=== PATIENT | female | born 1970 | race Caucasian/White ===

== ENCOUNTER 2018-01-31 17:27 | Emergency (ER) | payer OTHER, SELFPAY ==
[2018-01-31 17:32] VITALS: BP 131/79; PULSE 85; RESP 16; O2SAT 100; BMI 32.5
--- NOTE | 2018-01-31 17:49 | DI.RAD.S_ITS ---
PROCEDURE: XR CHEST 1V INDICATIONS: cp TECHNIQUE: One view of the chest was acquired. COMPARISON: [facility], , CHEST 2 VIEW, 01/31/2015, 14:23. FINDINGS: Surgical changes and devices: None. Lungs and pleura: No pleural effusions or pneumothorax. Lungs are clear. Mediastinum: Mediastinal contours appear normal. Heart size is normal. Bones and chest wall: No suspicious bony lesions. Overlying soft tissues appear unremarkable. IMPRESSION: No acute process. Dictated by: Keith Bejarano M.D. on 01/31/2018 at 18:12 Approved by: Keith Bejarano M.D. on 01/31/2018 at 18:13
[2018-01-31 18:19] LABS: Alanine Aminotransferase 23 IU/L (9-52); Albumin 4.6 g/dL (3.5-5.0); Albumin Globulin Ratio 1.6 (1.0-2.8); Alkaline Phosphatase 37 U/L (38-126); Aspartate Aminotransferase 19 IU/L (14-36); Bilirubin Total 0.5 mg/dL (0.2-1.3); Blood Urea Nitrogen 12 mg/dL (7-17); Calcium 9.3 mg/dL (8.4-10.2); Carbon Dioxide 23 mmol/L (22-32); Chloride 104 mmol/L (98-107); Creatine Kinase 40 U/L (30-135); Estimated Glomerular Filt Rate > 60.0 mL/min (>60); Globulin 2.8 g/dL (1.7-4.1); Glucose 99 mg/dL (70-100); HEMOLYSIS 17 (0-50); Lipase 49 U/L (23-300); Potassium 3.7 mmol/L (3.4-5.1); Sodium 141 mmol/L (137-145); Total Protein 7.4 g/dL (6.3-8.2)
[2018-01-31 18:23] LABS: Add Manual Diff / Slide Review NO; Eosinophils Percent Auto 1.7 % (2-4); Hematocrit 40.7 % (36-46); Hemoglobin 14.5 g/dL (12.0-16.0); Lymphocytes Percent Auto 24.5 % (25-40); Mean Corpuscular HGB Conc 35.7 % (30-36); Mean Corpuscular Hemoglobin 30.3 PG (26-34); Monocytes Percent Auto 8.1 % (3-14); Neutrophils Absolute Auto 5900 /uL (3000-5900); Neutrophils Percent Auto 64.7 % (50-75); Platelet Count 254 X10^3/uL (150-400); Red Blood Cell Count 4.79 X10^6/uL (4.0-5.2); Red Cell Distribution Width 12.4 % (11.6-14.8); White Blood Cell Count 9.2 X10^3/uL (4.5-11.0)
[2018-01-31 18:33] LABS: Troponin I < 0.012 ng/mL (0.01-0.034)
[2018-01-31 19:00] VITALS: BP 118/68; PULSE 80; RESP 15; O2SAT 100
[2018-01-31 19:30] VITALS: BP 120/80; PULSE 81; RESP 13; O2SAT 100
[2018-01-31 20:00] VITALS: BP 111/45; PULSE 76; RESP 12; O2SAT 100
--- NOTE | 2018-01-31 20:02 | ED_ITS ---
HPI - Chest Pain General Chief Complaint: Chest Pain Stated Complaint: chest pain, shortness of breath, pain in left shou Time Seen by Provider: 01/31/18 20:00 Source: patient Mode of arrival: ambulatory Limitations: no limitations History of Present Illness HPI narrative: Patient is a 47-year-old female who presents with chest discomfort ongoing for about 2 weeks. She had some belching before Thanksgiving and some burning. During this time she did have some shortness of breath. She has had the symptoms off and on for a few times since. She saw her PCP yesterday who thought it was acid reflux started her on omeprazole. Today she had a similar feeling and radiated up to her left shoulder which was abnormal. Related Data Allergies Allergy/AdvReac Type Severity Reaction Status Date / Time codeine [CODEINE] Allergy Mild RASH Verified 01/31/18 17:32 Review of Systems Review of Systems GENERAL: Denies chills, fatigue, malaise, fever, sweats, travel HEENT: Denies sinus pain, ear pain, sore throat, difficulty swallowing, neck pain RESPIRATORY: Denies dyspnea, cough, wheezing, hemoptysis, sputum. CARDIOVASCULAR: See HPI GASTROINTESTINAL: Denies nausea, vomiting, abdominal pain, diarrhea, constipation, melena. : Denies dysuria, frequency, incontinence, hematuria, urinary retention, flank pain. MUSCULOSKELETAL: Denies weakness, joint pain, or bony pain SKIN: No rash, no erythema, no pruritus NEUROLOGIC: Denies weakness, dizziness, headache, numbness, change in speech, confusion PSYCHIATRIC: No concerning psychosocial issues. 12 point review of systems is negative except for those stated above and HPI [facility] Medical History Healthy adult (Acute) Social History Smoking Status: Never smoker Comment: No known immediate family history of coronary artery disease Grandfather had MT at age 45 Exam Initial Vital Signs Initial Vital Signs: Vital Signs Pulse Rate 85 01/31/18 17:32 Respiratory Rate 16 01/31/18 17:32 Blood Pressure 131/79 01/31/18 17:32 Pulse Oximetry 100 01/31/18 17:32 GENERAL: Well-appearing, well-nourished and in no acute distress. HEENT: Head atraumatic,EOMI, pupils reactive, neck is supple no JVD CARDIOVASCULAR: Regular rate and rhythm without murmurs, rubs or gallops. RESPIRATORY: Breath sounds equal bilaterally, no wheezes rales or rhonchi. ABDOMEN: Soft, nontender. Normoactive bowel sounds all 4 quadrants. No guarding or rebound. : No CVA tenderness EXTREMITIES: Normal range of motion, no clubbing or edema. Neurovascularly intact NEUROLOGICAL: Alert and oriented x4.Normal gait and speech. Cranial nerves II through XII grossly intact. SKIN: Warm, dry, no laceration, no petechiae, no rashes or lesions. Scores HEART Score Heart Score history: Slightly Suspicious Heart Score EKG: Normal Heart Score Age: 45-64 years old Heart Score risk factors: No known risk factors Heart Score troponin: < or = to normal limit Heart Score Total: 1 PERC Score Age greater than or equal to 50 years: No Heart rate greater than or equal to 100 bpm: No Room Air O2 Sat less than 95%: No Unilateral leg swelling: No Recent trauma or surgery: No Hemoptysis: No Prior PE or DVT: No Hormone Use: No Total PERC Score: 0 Wells' Criteria for PE Clinical signs and symptoms of PE: No PE is #1 Dx or equally likely: No Heart rate > 100: No Immobilization at least 3 days or surg in previous 4 weeks: No History of PE or DVT: No Hemoptysis: No Malignancy w/Treatment within 6 months or palliative: No Wells' PE Score total: 0 Course Orders Ordered: ED Orders 01/31/18 17:49 XR chest 1V Stat EKG-12 Lead Stat 01/31/18 17:50 Complete Blood Count AUTO DIFF Stat Comprehensive Metabolic Panel Stat Lipase Stat Troponin & CK Cardiac Panel Stat Discontinued Medications Aspirin (Aspirin Chew) 324 mg PO NOW ONE Stop: 01/31/18 17:50 Sodium Chloride (Normal Saline 0.9%) 1,000 mls @ 150 mls/hr IV CONT AXEL Vital Signs - 8 hr 01/31/18 19:00 01/31/18 19:30 01/31/18 20:00 Pulse Rate 80 81 76 Respiratory Rate 15 13 12 Blood Pressure [Left Arm] 118/68 120/80 111/45 L Pulse Oximetry 100 100 100 MDM - Chest Pain Lab Data Attestation: I reviewed the patient's lab results. Result diagrams: 01/31/18 17:50 01/31/18 17:50 Lab Results 01/31/18 01/31/18 Range/Units 17:50 17:50 WBC 9.2 (4.5-11.0) X10^3/uL RBC 4.79 (4.0-5.2) X10^6/uL Hgb 14.5 (12.0-16.0) g/dL Hct 40.7 (36-46) % MCV 85.0 (80-100) fL MCH 30.3 (26-34) PG MCHC 35.7 (30-36) % RDW 12.4 (11.6-14.8) % Plt Count 254 (150-400) X10^3/uL Neut % (Auto) 64.7 (50-75) % Lymph % (Auto) 24.5 L (25-40) % Garden % (Auto) 8.1 (3-14) % Eos % (Auto) 1.7 L (2-4) % Baso % (Auto) 1.0 (0-2) % Neut # (Auto) 5900 (9416-8105) /uL Sodium 141 (137-145) mmol/L Potassium 3.7 (3.4-5.1) mmol/L Chloride 104 (98-107) mmol/L Carbon Dioxide 23 (22-32) mmol/L BUN 12 (7-17) mg/dL Creatinine 0.60 (0.52-1.04) mg/dL Estimated GFR > 60.0 (>60) mL/min BUN/Creatinine Ratio 20.0 (6-22) Glucose 99 (70-100) mg/dL Calcium 9.3 (8.4-10.2) mg/dL Total Bilirubin 0.5 (0.2-1.3) mg/dL AST 19 (14-36) IU/L ALT 23 (9-52) IU/L Alkaline Phosphatase 37 L (38-126) U/L Total Creatine Kinase 40 (30-135) U/L CK-MB (CK-2) TNP CK-MB (CK-2) Rel Index TNP Troponin I < 0.012 (0.01-0.034) ng/mL Total Protein 7.4 (6.3-8.2) g/dL Albumin 4.6 (3.5-5.0) g/dL Globulin 2.8 (1.7-4.1) g/dL Albumin/Globulin Ratio 1.6 (1.0-2.8) Lipase 49 (23-300) U/L Imaging Data Chest x-ray: Radiologist's impression: PROCEDURE: XR CHEST 1V INDICATIONS: cp TECHNIQUE: One view of the chest was acquired. COMPARISON: [facility], CHEST 2 VIEW, 01/31/2015, 14:23. FINDINGS: Surgical changes and devices: None. Lungs and pleura: No pleural effusions or pneumothorax. Lungs are clear. Mediastinum: Mediastinal contours appear normal. Heart size is normal. Bones and chest wall: No suspicious bony lesions. Overlying soft tissues appear unremarkable. IMPRESSION: No acute process. Dictated by: Keith Bejarano M.D. on 01/31/2018 at 18:12 ECG Data Attestation: I personally reviewed and interpreted this ECG as follows: Prior ECG tracings: not available for review Interpretation: Normal sinus rhythm rate [address] changes HI interval 137 no T-wave inversion MDM Narrative Medical decision making narrative: Patient sounds as though she is having acid reflux. She has had some belching. Troponin EKG negative. Low risk for PE Recommend outpatient follow-up Discharge Plan Departure Patient Disposition: Home Clinical Impression: Atypical chest pain, GERD (gastroesophageal reflux disease) Discharge Date/Time: 01/31/18 20:33 Interventions: ED Discharge Assessment Last Done: 01/31/18 20:33 Instructions: DI for Gastroesophageal Reflux Disease (GERD), DI for Atypical Chest Pain Activity Restrictions/Additional Instructions: *You have been diagnosed with atypical chest pain, probable GERD *What to do: May require further cardiac testing with your PCP however at this time EKG blood work and x-ray are reassuring *Continue to take medications as directed Continue omeprazole 30 min before your biggest meal on an empty stomach *Follow up with your primary care provider in 2-3 days *Return to ER if you should have new worsening or changing chest or any new, worsening or concerning symptoms Referrals: Jl Mcelroy MD [Primary Care Provider] -
== END 2018-01-31 20:33 | disposition home or self-care (01) ==
PROVIDERS: Emergency Medicine; Emergency Provider Emergency Medicine; PCP Family Medicine
DX: K21.9 Gastro-esophageal reflux disease without esophagitis (principal); R07.89 Other chest pain
CPT/HCPCS: 36591; 71045; 80053; 82550; 83690; 84484; 85025; 93005; 93010; 99283; 99285

== ENCOUNTER → 2018-02-14 09:13 | Outpatient (CLI) | payer OTHER, SELFPAY ==
--- NOTE | 2018-02-14 | DI.US.S_ITS ---
PROCEDURE: US ABDOMEN COMPLETE INDICATIONS: ABDOMINAL PAIN TECHNIQUE: Real-time scanning was performed of the abdominal and retroperitoneal organs, with image documentation. COMPARISON: [facility], US, ABDOMEN COMPLETE, 01/06/2016, 8:55. FINDINGS: Liver: Liver is normal in size and homogeneous in echotexture. Gallbladder: Surgically absent. Biliary ducts: Intrahepatic bile ducts are non-dilated. Extrahepatic bile duct caliber measures 6.7 mm. Normal is 6-7 mm or less in diameter, or 10 mm or less post-cholecystectomy. Pancreas: Visualized portions of the pancreas are sonographically normal. Spleen: Spleen is normal in size and homogeneous in echotexture. Kidneys: Kidneys are normal in size and echotexture. Right kidney measures 11.6 cm long; left kidney measures 11.7 cm long. No hydronephrosis or nephrolithiasis. No solid masses. Aorta: Visualized aorta is normal in caliber at less than 3 cm. Iliacs: Proximal common iliac arteries are normal in caliber at less than 2.5 cm. IVC: Intrahepatic inferior vena cava is patent. Miscellaneous: No free abdominal fluid. IMPRESSION: 1. No source for abdominal pain identified. Dictated by: Evan Franklin Colleen Interpreted: Luis Miguel Ward MD on 02/14/2018 at 10:16 Approved by: Luis Miguel Ward M.D. on 02/14/2018 at 11:08
== END ==
PROVIDERS: PCP Family Medicine; Visit Provider Family Medicine
DX: R10.9 Unspecified abdominal pain (principal); Z90.49 Acquired absence of other specified parts of digestive tract
CPT/HCPCS: 76700

== ENCOUNTER → 2018-02-24 08:29 | Outpatient (CLI) | payer OTHER, SELFPAY ==
--- NOTE | 2018-02-24 | DI.MG.S_ITS ---
UNILATERAL RIGHT DIGITAL DIAGNOSTIC MAMMOGRAM 3D/2D: 02/24/2018 CLINICAL: Right breast pain and lump. Per technologist interview with the patient, Approx 2 months ago. patient felt pain in the breast, described as a 'sore muscle' at the pain site. However, the breast had a ' full feeling' in the entire breast. Approximately at that time patient has felt a lump that comes and goes, and size of 'pea size'. No discharge and no skin changes have been noted by the patient.. Comparison is made to exams dated: 06/29/2017 mammogram, 01/23/2016 mammogram, and 12/17/2014 mammogram - [facility]. The tissue of right breast is heterogeneously dense. This may lower the sensitivity of mammography. There is a triangular marker overlying the skin of the medial right breast at the site of the patient's reported palpable abnormality. There is a 1.0 cm possible skin lesion as seen on the initial superficial tomosynthesis slices (RSCCBTO series 55/59) versus superficial skin fold caused by the skin marker. There is no other underlying mammographic abnormality. There is a square marker overlying the skin of the medial right breast at the site of the patient's reported focal pain. There is no underlying mammographic abnormality. IMPRESSION: INCOMPLETE: NEEDS ADDITIONAL IMAGING EVALUATION 1) There is a 1.0 cm possible skin lesion as seen on the initial superficial tomosynthesis slices versus superficial skin fold caused by the skin marker at the site of the patient's reported focal palpable abnormality. Targeted diagnostic ultrasound recommended for further evaluation, which will be performed immediately following this exam. 2) No mammographic abnormality to correlate with the site of the patient's reported focal breast pain. Targeted diagnostic ultrasound recommended for further evaluation, which will be performed immediately following this exam. This exam was interpreted at Station ID: [id number]. NOTE: For mammograms, a report in lay terms will be sent to the patient. Approximately 15% of breast malignancies will not be visualized mammographically. In the management of a palpable breast mass, a negative mammogram must not discourage biopsy of a clinically suspicious lesion. Electronically Signed By: Familia Mckeon M.D. ecl/:02/24/2018 09:25:35 letter sent: Additional Imaging Needed ACR BI-RADS Category 0: Incomplete [id number]
--- NOTE | 2018-02-24 | DI.US.S_ITS ---
LIMITED ULTRASOUND OF RIGHT BREAST: 02/24/2018 CLINICAL: Palpable lump and separate area of pain. Comparison is made to exams dated: 02/24/2018 mammogram, 06/29/2017 mammogram, 01/23/2016 mammogram, and 12/17/2014 mammogram - [facility]. Real-time and Doppler ultrasound of the right breast 2-3 o'clock region were performed. Willis scale images of the real-time examination were reviewed. Targeted ultrasound was performed in the region of the patient's reported focal pain in the right breast at 3 o'clock 8 cm from the nipple. No underlying breast mass or abnormality is identified. There is specifically no abnormality within the overlying skin on ultrasound or on physical exam. Targeted ultrasound was performed in the region of the patient's reported focal palpable abnormality in the right breast at 2 o'clock 9 cm from the nipple. No underlying breast mass or abnormality is identified. There is specifically no abnormality within the overlying skin on ultrasound or on physical exam. IMPRESSION: NEGATIVE 1) No ultrasound findings to explain patient's reported focal pain in the right breast. Recommend clinical follow-up for further evaluation and management of the patient's reported symptoms. 2) No ultrasound findings to explain patient's reported focal palpable abnormality in the right breast. Recommend clinical follow-up for further evaluation and management of the patient's reported symptoms. 3) There is no sonographic evidence of malignancy in the imaged right breast. Return to annual screening mammography is recommended. These results and recommendations were discussed with the patient at the time of the exam by Dr. Mckeon in person. The patient was advised to monitor her breasts and to return sooner for re-evaluation should she feel anything grow or change. This exam was interpreted at Station ID: [id number]. Electronically Signed By: Familia Mckeon M.D. ecl/:02/24/2018 09:50:10 letter sent: Clinical Evaluation Ultrasound BI-RADS: 1 Negative
== END ==
PROVIDERS: PCP Family Medicine; Visit Provider Family Medicine
DX: R92.8 Other abnormal and inconclusive findings on diagnostic imaging of breast (principal); N64.4 Mastodynia; N63.12 Unspecified lump in the right breast, upper inner quadrant
CPT/HCPCS: 76642; 77065; G0279

== ENCOUNTER → 2018-03-07 12:17 | Outpatient (CLI) | payer OTHER, SELFPAY ==
[2018-03-07 13:23] LABS: Free T3, Triiodothyronine Free 3.23 pg/mL (2.77-5.27); Free T4, Direct Thyroxine 0.88 ng/dL (0.78-2.19)
[2018-03-07 13:37] LABS: Thyroid Stimulating Hormone 2.29 uIU/mL (0.47-4.68)
[2018-03-10 19:37] LABS: Thyroid Peroxidase Antibodies 3 IU/mL (< 9)
== END ==
PROVIDERS: PCP Family Medicine; Visit Provider Naturopath
DX: Z13.29 Encounter for screening for other suspected endocrine disorder (principal)
CPT/HCPCS: 36415; 84439; 84443; 84481; 86376

== ENCOUNTER → 2018-04-02 09:29 | Outpatient (CLI) | payer OTHER, SELFPAY ==
--- NOTE | 2018-04-02 | DI.CT.S_ITS ---
PROCEDURE: CT ABDOMEN PELVIS W CON INDICATIONS: ABDOMINAL PAIN TECHNIQUE: After the administration of oral and intravenous contrast, 5 mm thick sections acquired from the diaphragms to the symphysis. 5 mm thick coronal and sagittal reformats were performed. For radiation dose reduction, the following was used: automated exposure control, adjustment of mA and/or kV according to patient size. COMPARISON: [facility], CT, ABDOMEN/PELVIS WITH CONTRAST, 12/26/2005, 16:46. [facility], CT, KIDNEY/ URETER/BLADDER, 11/18/2014, 9:39. [facility], CT, ABDOMEN/PELVIS WITH CONTRAST, 12/26/2005, 16:46. FINDINGS: Image quality: Excellent. ABDOMEN: Lung bases: Lung bases are clear. Heart size is normal. Solid organs: Liver is normal in size and enhancement. Gallbladder surgically absent. Biliary system is non-dilated. Within the head/body of the pancreas on image 24 series 3 there is a 6 mm hypodense, possibly cystic lesion which is indeterminate. There is also a smaller 5 mm hypodensity seen within the body/tail of the pancreas on image 24 series 3. These are more conspicuous compared to prior studies Spleen is normal in size and enhancement. No adrenal nodules. Kidneys are normal in size, without hydronephrosis. Multiple right renal cortical subcentimeter hypodensities are too small to characterize accurately. Peritoneum and bowel: Stomach, small bowel, and colon loops are normal in caliber and wall thickness. No free fluid or air. Appendix is not clearly identified and may be surgically absent; no suspicious pericecal inflammatory changes are identified Nodes and vessels: No retroperitoneal or mesenteric adenopathy. Aorta and inferior vena cava are normal in caliber. Miscellaneous: Small fat-containing umbilical hernia.. PELVIS: Genitourinary: Bladder wall thickness is normal. Miscellaneous: No inguinal hernias or adenopathy. Bones: No suspicious bony lesions. No vertebral body compression fractures. IMPRESSION: Overall, no acute abnormality. No visualized specific etiology for right flank pain. Incidentally noted subcentimeter hypodense foci within the pancreas as detailed above, indeterminate. Recommend followup imaging in 2 years to help exclude the possibility of early cystic neoplasm. At that time, contrast enhanced pancreatic protocol MRI is suggested. Dictated by: Chip Esteves M.D. on 04/02/2018 at 12:17 Approved by: Chip Esteves M.D. on 04/02/2018 at 12:27
== END ==
PROVIDERS: PCP Family Medicine; Visit Provider Family Medicine
DX: R10.9 Unspecified abdominal pain (principal); K42.9 Umbilical hernia without obstruction or gangrene; Z90.49 Acquired absence of other specified parts of digestive tract
CPT/HCPCS: 74177; Q9967

== ENCOUNTER → 2018-04-07 13:14 | Outpatient (REF) | payer OTHER, SELFPAY | LOC: LAB 13:14 | PROVIDERS: PCP Family Medicine; Visit Provider Family Medicine | DX: R31.9 Hematuria, unspecified (principal); R10.9 Unspecified abdominal pain | CPT/HCPCS: 87086 ==

== ENCOUNTER → 2018-11-25 14:55 | Outpatient (CLI) | payer OTHER, SELFPAY ==
--- NOTE | 2018-11-25 | DI.RAD.S_ITS ---
PROCEDURE: XR CHEST 2V INDICATIONS: COUGH TECHNIQUE: 2 views of the chest were acquired. COMPARISON: [facility], CR, XR CHEST 1V, 01/31/2018, 18:00. FINDINGS: Surgical changes and devices: None. Lungs and pleura: Lungs are clear. No pleural effusions or pneumothorax. Mediastinum: Mediastinal contours are normal. Heart size is normal. Bones and chest wall: No suspicious bony abnormalities. Soft tissues appear unremarkable. IMPRESSION: No acute cardiopulmonary disease. Dictated by: Lauren Lomeli M.D. on 11/25/2018 at 16:10 Approved by: Lauren Lomeli M.D. on 11/25/2018 at 16:11
== END ==
PROVIDERS: PCP Family Medicine; Visit Provider Family Medicine
DX: R05 Cough (principal)
CPT/HCPCS: 71046

== ENCOUNTER → 2019-04-09 15:42 | Outpatient (CLI) | payer OTHER, SELFPAY ==
--- NOTE | 2019-04-09 | DI.CT.S_ITS ---
PROCEDURE: CT KIDNEY URETER BLADDER (KUB) INDICATIONS: Urinary tract infection, site not specified TECHNIQUE: Noncontrast 5 mm thick sections acquired from the diaphragms to the symphysis. 5 mm thick coronal and sagittal reformats were then performed. For radiation dose reduction, the following was used: automated exposure control, adjustment of mA and/or kV according to patient size. COMPARISON: [facility], CT, KIDNEY/ URETER/BLADDER, 11/18/2014, 9:39. FINDINGS: Image quality: Excellent. Lung bases: Lung bases are clear. Heart size is normal. Urinary system: Both kidneys are normal in size. There are punctate bilateral renal calcifications both visualized on image 25/2 suggestive of nonobstructive tiny renal calculi No hydronephrosis or perinephric fat stranding. Both ureters appear non-dilated throughout their expected courses. Bladder wall thickness is normal; no calcified bladder stones. Other solid organs: Liver is normal in size. Gallbladder surgically absent. Pancreas is normal in contours. Spleen is normal in size. No adrenal nodules. Peritoneum and bowel: Unenhanced bowel loops demonstrate normal wall thickness and caliber. No free fluid or air. Appendix not visualized and may be surgically absent given right lower quadrant postsurgical changes Nodes and vessels: No retroperitoneal or mesenteric adenopathy by size criteria. Aorta and inferior vena cava are normal in caliber. Abdominal wall: Small fat-containing umbilical hernia. Pelvis: No free pelvic fluid. No inguinal hernias or adenopathy. Bones: No suspicious bony lesions. No vertebral body compression fractures. IMPRESSION: Tiny punctate bilateral renal calculi. No evidence of urinary obstruction Elsewhere, no acute process Status post cholecystectomy. Dictated by: Chip Esteves M.D. on 04/09/2019 at 16:10 Approved by: Chip Esteves M.D. on 04/09/2019 at 16:17
== END ==
PROVIDERS: PCP Family Medicine; Referring Provider Family Medicine; Visit Provider Family Medicine
DX: N39.0 Urinary tract infection, site not specified (principal); R35.0 Frequency of micturition; R31.29 Other microscopic hematuria; K42.9 Umbilical hernia without obstruction or gangrene; Z90.49 Acquired absence of other specified parts of digestive tract; Z87.442 Personal history of urinary calculi
CPT/HCPCS: 74176

== ENCOUNTER → 2019-09-16 15:02 | Outpatient (CLI) | payer OTHER, SELFPAY ==
--- NOTE | 2019-09-16 | DI.US.S_ITS ---
LIMITED ULTRASOUND OF RIGHT BREAST: 09/16/2019 CLINICAL: Focal right breast pain. Comparison is made to exams dated: 09/16/2019 mammogram, 02/24/2018 ultrasound, 02/24/2018 mammogram, 06/29/2017 mammogram, and 01/23/2016 mammogram - [facility]. Real-time ultrasound of the right breast upper inner quadrant was performed. Willis scale images of the real-time examination were reviewed. No significant abnormalities were seen sonographically in the right breast. Specifically, no finding to explain the patient's pain. IMPRESSION: NEGATIVE There is no sonographic correlate to the patient's pain and no evidence of malignancy. Return to annual mammogram screening schedule is recommended. Findings and recommendations were conveyed to the patient at time of exam. This exam was interpreted at Station ID: [id number]. Electronically Signed By: Faith shin/:09/21/2019 09:18:00 copy to: Mary Johnson letter sent: Normal Exam Ultrasound BI-RADS: 1 Negative
--- NOTE | 2019-09-16 | DI.MG.S_ITS ---
BILATERAL DIGITAL DIAGNOSTIC MAMMOGRAM 3D/2D: 09/16/2019 CLINICAL: Right breast pain. Comparison is made to exams dated: 02/24/2018 mammogram, 06/29/2017 mammogram, 01/23/2016 mammogram, and 12/17/2014 mammogram - [facility]. The tissue of both breasts is heterogeneously dense. This may lower the sensitivity of mammography. No significant masses, calcifications, or other findings are seen in either breast. Specifically, no finding to correspond to the patient's pain. IMPRESSION: INCOMPLETE: NEEDS ADDITIONAL IMAGING EVALUATION There is no abnormality seen in the right breast to correspond with the pain at 1 o'clock, however, ultrasound is recommended. This was performed immediately following this exam. Mammograms are otherwise stable. This exam was interpreted at Station ID: [id number]. NOTE: For mammograms, a report in lay terms will be sent to the patient. Approximately 15% of breast malignancies will not be visualized mammographically. In the management of a palpable breast mass, a negative mammogram must not discourage biopsy of a clinically suspicious lesion. Electronically Signed By: Faith shin/:09/16/2019 15:46:13 copy to: Mary Johnson ACR BI-RADS Category 0: Incomplete [id number]
== END ==
PROVIDERS: PCP Family Medicine; Referring Provider Family Medicine; Visit Provider Family Medicine
DX: R92.8 Other abnormal and inconclusive findings on diagnostic imaging of breast (principal); N64.4 Mastodynia
CPT/HCPCS: 76642; 77066; G0279

== ENCOUNTER → 2020-06-09 12:06 | Outpatient (CLI) | payer OTHER, SELFPAY ==
--- NOTE | 2020-06-09 12:08 | DI.US.S_ITS ---
PROCEDURE: US THYROID INDICATIONS: Enlarged thyroid TECHNIQUE: Real-time scanning was performed of the thyroid gland, with image documentation. COMPARISON: None. FINDINGS: Thyroid dimensions: The right thyroid lobe measures 1.4 x 1.5 x 5.0 cm without mass. The left thyroid lobe measures 1.3 x 1.5 x 5.2 cm, without mass. The isthmus measures 3 mm, normal. There is a mildly prominent lymph node at the right submandibular region measuring 7 x 12 x 19 mm. Several additional scattered 5 mm nodes are noted. IMPRESSION: No thyroid mass or hyperemia involving the thyroid gland is present. Mildly prominent lymph node right submandibular region as discussed above measuring 7 x 12 x 19 mm. Depending on the clinical status follow-up by contrast-enhanced CT or MR scanning of the neck may be warranted for more accurate assessment of deeper structures. Dictated by: Andres Larson M.D. on 06/10/2020 at 12:34 Approved by: Andres Larson M.D. on 06/10/2020 at 12:52
== END ==
PROVIDERS: PCP Internal Medicine; Referring Provider Internal Medicine; Visit Provider Internal Medicine
DX: E04.9 Nontoxic goiter, unspecified (principal)
CPT/HCPCS: 76536

== ENCOUNTER → 2020-07-27 07:09 | Outpatient (CLI) | payer OTHER, SELFPAY ==
--- NOTE | 2020-07-27 10:15 | DI.CT.S_ITS ---
PROCEDURE: CT SOFT TISSUE NECK W CON INDICATIONS: Localized enlarged lymph nodes TECHNIQUE: After the administration of intravenous contrast, 3.0 mm axial sections acquired from the sella to the aortic arch. Additional oblique axial 3.0 mm sections acquired through the pharynx. 3 mm thick coronal and sagittal reformats were generated. For radiation dose reduction, the following was used: automated exposure control. COMPARISON: [facility], US, US THYROID, 06/09/2020, 11:26. FINDINGS: Image quality: Excellent. Lymph nodes: Small scattered submandibular and submental lymph nodes noted. Largest is a right submandibular node measuring 1.2 x 0.5 cm. Fatty hilum is preserved. Similar. Nodes present in the deep cervical chains as well, largest is a level 2 node on the right measuring 8 mm in short axis. Vessels: Visualized vasculature appears patent. Neck spaces: The oropharynx, nasopharynx, and pharynx demonstrate no mucosal lesions. The vocal cords, false vocal cords, pyriform sinuses, epiglottis, vallecula, and tongue base all appear normal. Extramucosal spaces appear unremarkable. Glands: The parotid and submandibular glands appear normal. Thyroid gland unremarkable. Miscellaneous: Visualized brain and orbits appear normal. Lung apices appear clear. Superficial soft tissues appear normal. Bones: No suspicious bony lesions. Visualized sinuses and mastoids appear unremarkable. IMPRESSION: Small nonenlarged bilateral submandibular and deep cervical lymph nodes with preserved fatty sylvester are likely reactive. Consider clinical follow-up. REFERENCE TEXT DELETE FROM FINAL REPORT ACR White Paper recommendations: incidental thyroid nodules. Nodules on CT, MR, or extra-thyroidal US (ie., carotid study): * Pts < 35 years old: recommend dedicated thyroid US if nodule is 1 cm or larger, without suspicious imaging features. * Pts 35 years old or more: recommend dedicated thyroid US if nodule is 1.5 cm or larger, without suspicious imaging features. * Suspicious imaging features include: invasion of local tissues by thyroid nodule, suspicious lymph nodes (calcifications, cystic components, increased enhancement). Also ipsilateral nodes >1.5 cm short axis diameter for jugulodigastric nodes, and >1 cm for other regions. Hypermetabolic nodules on PET-CT: * Recommend both thyroid US and thyroid FNA if patient has normal life expectancy. Nodules on other types of nuclear medicine studies: MIBI and octreotide scans. * Recommend thyroid US if patient has normal life expectancy. * Decision to proceed to thyroid FNA would depend on thyroid US characteristics. Dictated by: Jose Andrew M.D. on 07/27/2020 at 12:48 Approved by: Jose Andrew M.D. on 07/27/2020 at 13:06
== END ==
PROVIDERS: PCP Internal Medicine; Referring Provider Internal Medicine; Visit Provider Internal Medicine
DX: R59.0 Localized enlarged lymph nodes (principal)
CPT/HCPCS: 70491; Q9967

== ENCOUNTER → 2020-12-05 14:30 | Outpatient (CLI) | payer OTHER, SELFPAY ==
--- NOTE | 2020-12-05 14:32 | DI.MG.S_ITS ---
BILATERAL DIGITAL SCREENING MAMMOGRAM 3D/2D WITH CAD: 12/05/2020 CLINICAL: Routine screening. Family history of breast cancer. Comparison is made to exams dated: 09/16/2019 mammogram, 06/29/2017 mammogram, and 01/23/2016 mammogram - [facility]. There are scattered fibroglandular elements in both breasts. Current study was also evaluated with a Computer Aided Detection (CAD) system. No significant masses, calcifications, or other findings are seen in either breast. There has been no significant interval change. IMPRESSION: NEGATIVE There is no mammographic evidence of malignancy. A 1 year screening mammogram is recommended. This exam was interpreted at Station ID: [id number]. NOTE: For mammograms, a report in lay terms will be sent to the patient. Approximately 15% of breast malignancies will not be visualized mammographically. In the management of a palpable breast mass, a negative mammogram must not discourage biopsy of a clinically suspicious lesion. Electronically Signed By: Giles shaw/[place]:12/06/2020 07:43:40 copy to: Mary Johnson letter sent: Normal Exam ACR BI-RADS Category 1: Negative [id number]
== END ==
PROVIDERS: PCP Internal Medicine; Referring Provider Internal Medicine; Visit Provider Internal Medicine
DX: Z12.31 Encounter for screening mammogram for malignant neoplasm of breast (principal); Z80.3 Family history of malignant neoplasm of breast
CPT/HCPCS: 77063; 77067

== ENCOUNTER → 2021-01-02 10:08 | Outpatient (CLI) | payer OTHER, SELFPAY ==
--- NOTE | 2021-01-02 | DI.US.S_ITS ---
PROCEDURE: US ABDOMEN COMPLETE INDICATIONS: RUQ PAIN TECHNIQUE: Real-time scanning was performed of the abdominal and retroperitoneal organs, with image documentation. COMPARISON: [facility], CT, CT KIDNEY URETER BLADDER (KUB), 04/09/2019, 15:48. [facility], US, US ABDOMEN COMPLETE, 02/14/2018, 9:34. FINDINGS: Liver: Liver is diffusely increased in echogenicity. No focal hepatic abnormalities identified. Normal hepatic size. Gallbladder: Surgically absent. Biliary ducts: Intrahepatic bile ducts are non-dilated. Extrahepatic bile duct caliber measures 6.1 mm. Normal is 6-7 mm or less in diameter, or 10 mm or less post-cholecystectomy. Pancreas: Visualized portions of the pancreas are sonographically normal. Small cystic structure adjacent to the pancreatic head measuring 1.1 x 0.7 x 1.0 cm. Spleen: Spleen is normal in size and homogeneous in echotexture. Kidneys: Kidneys are normal in size and echotexture. Right kidney measures 11.9 cm long; left kidney measures 11.9 cm long. No hydronephrosis or nephrolithiasis. No solid masses. Aorta: Visualized aorta is normal in caliber at less than 3 cm. Iliacs: Proximal common iliac arteries are normal in caliber at less than 2.5 cm. IVC: Intrahepatic inferior vena cava is patent. Miscellaneous: No free abdominal fluid. IMPRESSION: 1. Increased hepatic echogenicity noted possibly related to hepatic steatosis but other sources of hepatocellular disease cannot be excluded. Recommend clinical correlation. 2. 11 mm possible cyst adjacent to the pancreatic head. If indicated, pancreatic protocol CT or MRI could be performed for further characterization; otherwise continued sonographic surveillance. Dictated by: Evan Franklin [facility] Interpreted: Luis Miguel Ward MD on 01/02/2021 at 11:11 Transcribed by: RENETTA on 01/02/2021 at 11:14 Approved by: Luis Miguel Ward M.D. on 01/02/2021 at 11:18
--- NOTE | 2021-01-02 | DI.US.S_ITS ---
PROCEDURE: US PELVIC COMPLETE INDICATIONS: RIGHT PELVIC PAIN; DUB TECHNIQUE: Real-time scanning was performed of the pelvic organs, with image documentation. Additional endovaginal scanning was necessary due to incomplete visualization of the adnexal and endometrial structures by transabdominal scanning. COMPARISON: [facility], US, PELVIC COMPLETE, 01/06/2016, 8:39. FINDINGS: Uterus: The uterus demonstrates mildly heterogeneous echotexture, measures 9.6 x 5 x 6.1 cm, and is anteverted. The endometrium measures 10 mm in combined thickness. Ovaries: The right ovary measures 2.6 x 1.9 x 1.8 cm. A 7 mm hypoechoic lesion is seen, most consistent with an ovarian cyst. The left ovary measures 3.3 x 3 x 3.4 cm. A complex hypoechoic lesion is seen, measuring 2.6 x 1.8 x 2.7 cm, which reflect hemorrhagic cyst. Other: No pathologic free abdominal or pelvic fluid. IMPRESSION: Complex hypoechoic lesion in the left ovary as detailed above, which may reflect a hemorrhagic cyst. Dictated by: Crescencio Schaeffer M.D. on 01/02/2021 at 11:18 Approved by: Crescencio Schaeffer M.D. on 01/02/2021 at 11:27
== END ==
PROVIDERS: PCP Internal Medicine; Referring Provider Internal Medicine; Visit Provider Internal Medicine
DX: R10.2 Pelvic and perineal pain (principal); N93.8 Other specified abnormal uterine and vaginal bleeding; N83.202 Unspecified ovarian cyst, left side; R10.31 Right lower quadrant pain; R31.21 Asymptomatic microscopic hematuria; Z90.49 Acquired absence of other specified parts of digestive tract
CPT/HCPCS: 76700; 76830; 76856

== ENCOUNTER → 2021-03-02 14:05 | Outpatient (CLI) | payer OTHER, SELFPAY ==
[2021-03-02 14:30] LABS: Add Manual Diff / Slide Review NO; Basophils Absolute Auto 100 /uL (0-100); Basophils Percent Auto 1.2 % (0-2); Eosinophils Absolute Auto 200 /uL (0-450); Hematocrit 39.8 % (36-46); Hemoglobin 14.1 g/dL (12.0-16.0); Lymphocytes Absolute Auto 2200 /uL (1100-4500); Lymphocytes Percent Auto 23.8 % (25-40); Mean Corpuscular HGB Conc 35.5 % (30-36); Mean Corpuscular Hemoglobin 30.2 PG (26-34); Mean Corpuscular Volume 85.2 fL (80-100); Monocytes Absolute Auto 800 /uL (0-900); Monocytes Percent Auto 8.7 % (3-14); Neutrophils Absolute Auto 5800 /uL (1500-7000); Neutrophils Percent Auto 64.3 % (50-75); Platelet Count 295 X10^3/uL (150-400); Red Blood Cell Count 4.67 X10^6/uL (4.0-5.2); Red Cell Distribution Width 12.6 % (11.6-14.8); White Blood Cell Count 9.1 X10^3/uL (4.5-11.0)
[2021-03-02 15:01] LABS: Cancer Antigen 125 9.2 U/mL (0-35)
[2021-03-02 15:31] LABS: Free T4, Direct Thyroxine 0.83 ng/dL (0.78-2.19)
[2021-03-02 15:45] LABS: Thyroid Stimulating Hormone 2.45 uIU/mL (0.47-4.68)
== END ==
PROVIDERS: PCP Internal Medicine; Referring Provider Obstetrics & Gynecology; Visit Provider Obstetrics & Gynecology
DX: N83.209 Unspecified ovarian cyst, unspecified side (principal); N93.9 Abnormal uterine and vaginal bleeding, unspecified
CPT/HCPCS: 36415; 84439; 84443; 85025; 86304

== ENCOUNTER → 2021-12-05 11:44 | Outpatient (CLI) | payer OTHER, SELFPAY ==
--- NOTE | 2021-12-05 | DI.US.S_ITS ---
ULTRASOUND OF RIGHT BREAST: 12/05/2021 CLINICAL: Palpable right breast lump. Comparison is made to exams dated: 12/05/2021 mammogram, 12/05/2020 mammogram, 09/16/2019 mammogram, 09/16/2019 ultrasound, 02/24/2018 ultrasound, and 02/24/2018 mammogram - [facility]. Real-time ultrasound of the right breast was performed. Willis scale images of the real-time examination were reviewed. No significant abnormalities were seen sonographically in the right breast. IMPRESSION: NEGATIVE There is no sonographic evidence of malignancy. There are no abnormalities seen in the right breast to correspond with the areas of clinical concern at 1:30 o'clock which likely represent normal fibroglandular tissue. Clinical evaluation is recommended. Return to annual mammogram screening schedule is recommended. This exam was interpreted at Station ID: [id number]. Electronically Signed By: Hollis Granados M.D. lc/:12/05/2021 13:10:26 copy to: Mary Johnson letter sent: Clinical Evaluation Ultrasound BI-RADS: 1 Negative
--- NOTE | 2021-12-05 | DI.MG.S_ITS ---
BILATERAL DIGITAL DIAGNOSTIC MAMMOGRAM 3D/2D: 12/05/2021 CLINICAL: Right breast lump. Comparison is made to exams dated: 12/05/2020 mammogram, 09/16/2019 mammogram, 09/16/2019 ultrasound, 06/29/2017 mammogram, 12/17/2014 mammogram, and 01/23/2016 mammogram - [facility]. There are scattered areas of fibroglandular density in both breasts (category b / 25%-50% glandular tissue). No significant masses, calcifications, or other findings are seen in either breast. IMPRESSION: INCOMPLETE: NEEDS ADDITIONAL IMAGING EVALUATION There is no abnormality seen in the right breast to correspond with the area of clinical concern, however, ultrasound is recommended. This exam was interpreted at Station ID: [id number]. NOTE: For mammograms, a report in lay terms will be sent to the patient. Approximately 15% of breast malignancies will not be visualized mammographically. In the management of a palpable breast mass, a negative mammogram must not discourage biopsy of a clinically suspicious lesion. Electronically Signed By: Hollis Granados M.D. lc/:12/05/2021 13:07:03 copy to: Mary Johnson ACR BI-RADS Category 0: Incomplete 3340F
== END ==
PROVIDERS: PCP Internal Medicine; Referring Provider Internal Medicine; Visit Provider Internal Medicine
DX: N63.10 Unspecified lump in the right breast, unspecified quadrant (principal); Z80.3 Family history of malignant neoplasm of breast; R92.2 Inconclusive mammogram; N64.4 Mastodynia
CPT/HCPCS: 76642; 77066; G0279

== ENCOUNTER → 2021-12-06 11:49 | Outpatient (CLI) | payer OTHER, SELFPAY ==
--- NOTE | 2021-12-06 11:50 | DI.US.S_ITS ---
PROCEDURE: US PELVIC COMPLETE INDICATIONS: OVARIAN CYST TECHNIQUE: Real-time scanning was performed of the pelvic organs, with image documentation. Additional endovaginal scanning was necessary due to incomplete visualization of the adnexal and endometrial structures by transabdominal scanning. COMPARISON: [facility], , US PELVIC COMPLETE, 01/02/2021, 10:46. FINDINGS: Uterus: Uterus is anteverted and enlarged in size at 10.1 x 5 x 6.6 cm. The myometrium is mildly heterogeneous. 7 x 6 x 7 mm intramural fibroid in anterior myometrium near midline is seen. The endometrium is normal in thickness and show no endometrial mass or fluid. Ovaries: The right ovary measures 3.5 x 2.0 x 3.1 cm, with a calculated ovarian volume of 11.4 cc. The left ovary measures 2.6 x 3.1 x 2.9 cm, with a calculated ovarian volume of 12.1 cc. The ovaries have a normal sonographic appearance. Less than 12 follicles can be seen in each ovary.. No adnexal masses are seen. 2.3 x 1.5 x 1.4 cm mildly complex cyst is seen in right ovary. 2.3 x 2.3 x 2.2 cm simple cyst is seen in left ovary. Other: No pathologic free abdominal or pelvic fluid. IMPRESSION: 1. Enlarged uterus with small uterine fibroid as above. No endometrial mass or fluid. 2. Mildly complex cyst in right ovary as above. Simple cyst in left ovary. No solid appearing ovarian lesion. We strive to produce accurate, complete, and clear reports of imaging services. To assist us in improving patient care, this report was composed using standard report templates and voice recognition software. Therefore, it may contain abnormal punctuation, insertions and/or omissions. Occasional wrong-word or sound-alike substitutions may occur. Though we review the report and make efforts to correct it, we do recommend that the report be read carefully in proper context to recognize any text inaccuracies. Dictated by: Luis Miguel Ward M.D. on 12/06/2021 at 14:49 Approved by: Luis Miguel Ward M.D. on 12/06/2021 at 15:08
== END ==
PROVIDERS: PCP Internal Medicine; Referring Provider Internal Medicine; Visit Provider Internal Medicine
DX: N83.201 Unspecified ovarian cyst, right side (principal); N83.202 Unspecified ovarian cyst, left side; D25.1 Intramural leiomyoma of uterus
CPT/HCPCS: 76830; 76856; 93975

== ENCOUNTER → 2022-03-27 08:39 | Outpatient (CLI) | payer OTHER, SELFPAY | PROVIDERS: PCP Internal Medicine; Visit Provider Obstetrics & Gynecology | DX: R30.0 Dysuria (principal) | CPT/HCPCS: 87086 ==

== ENCOUNTER → 2022-07-01 10:26 | Outpatient (CLI) | payer OTHER, SELFPAY ==
--- NOTE | 2022-07-01 10:28 | DI.CT.S_ITS ---
PROCEDURE: CT ABDOMEN PELVIS W CON INDICATIONS: Unspecified abdominal pain TECHNIQUE: After the administration of oral and IV contrast, axial sections were acquired from the lung bases to the pubic symphysis. Coronal and sagittal reformats were performed. For radiation dose reduction, the following was used: automated exposure control, adjustment of mA and/or kV according to patient size. COMPARISON: [facility], MR, MR ABDOMEN PANCREAS PROTOCOL, 04/11/2022, 8:11. [facility], CT, CT ABDOMEN PELVIS W CON, 04/02/2018, 10:11. [facility], CT, CT KIDNEY URETER BLADDER (KUB), 04/09/2019, 15:48. FINDINGS: Image quality: Excellent. Lung bases: Unremarkable. Heart: No significant findings. ABDOMEN: Liver: Unremarkable. Gallbladder: Removed. Biliary ducts: Unremarkable. Pancreas: There is a 9 mm pancreatic head cyst, which is similar to the prior MRI. Spleen: Unremarkable. Adrenal Glands: Unremarkable. Kidneys and Ureters: On this postcontrast study, no large kidney stones are seen. The kidneys demonstrate normal size and enhance symmetrically. There is no hydronephrosis. Likely right renal cysts are seen. Stomach and Bowel: Stomach, small bowel loops, and colon are unremarkable. Prior appendectomy. Peritoneum: No abnormal intraperitoneal fluid. No free air. Ventral Wall: A mild periumbilical hernia is seen, containing fat. Abdominal Nodes: No retroperitoneal or mesenteric adenopathy by size criteria. Vessels: Aorta and inferior vena cava are normal in size. PELVIS: Pelvic Organs: Unremarkable. Bladder: Unremarkable. Pelvic Nodes: No enlarged lymph nodes. Miscellaneous: No inguinal hernias are seen. Bones: Unremarkable. IMPRESSION: Cystic pancreatic head lesion again seen, which is similar to the prior MRI. No kidney stones can be seen to the limits of this contrast enhanced CT. Additional findings: Cholecystectomy Likely right renal cysts Mild fat containing periumbilical hernia Appendectomy Dictated by: Jack Trevino M.D. on 07/01/2022 at 16:23 Approved by: Jack Trevino M.D. on 07/01/2022 at 16:30
== END ==
PROVIDERS: PCP Internal Medicine; Referring Provider Registered Nurse; Visit Provider Registered Nurse
DX: K86.2 Cyst of pancreas (principal); K42.9 Umbilical hernia without obstruction or gangrene; R10.9 Unspecified abdominal pain; Z87.442 Personal history of urinary calculi; Z90.49 Acquired absence of other specified parts of digestive tract
CPT/HCPCS: 74177; Q9967

== ENCOUNTER → 2022-07-06 13:04 | Outpatient (CLI) | payer OTHER, SELFPAY ==
--- NOTE | 2022-07-06 | DI.US.S_ITS ---
PROCEDURE: US PELVIC COMPLETE INDICATIONS: CYST OF OVARY TECHNIQUE: Real-time scanning was performed of the pelvic organs, with image documentation. Additional endovaginal scanning was necessary due to incomplete visualization of the adnexal and endometrial structures by transabdominal scanning. COMPARISON: [facility], CT, CT ABDOMEN PELVIS W CON, 07/01/2022, 12:26. [facility], US, PELVIC COMPLETE, 01/06/2016, 8:39. FINDINGS: Uterus: Uterus is anteverted and normal in size at 8.9 x 4.4 x 5.3 cm. The myometrium is homogeneous. The endometrium measures 4-5 mm combined thickness. No abnormal vascularity can be seen along the endometrial stripe. Ovaries: The right ovary measures 3 x 2.8 x 2.9 cm, with a calculated ovarian volume of 13.5 cc. The left ovary measures 2.6 x 2.2 x 2.6 cm, with a calculated ovarian volume of 7.8 cc. The ovaries have a normal sonographic appearance, with physiologic appearing follicles seen on each side. Less than 12 follicles can be seen in each ovary. No adnexal masses are seen. Normal appearing arterial waveforms are confirmed to each ovary. Other: No pathologic free abdominal or pelvic fluid. IMPRESSION: No abnormal ovarian cysts are seen. Cystic ovarian follicles are seen on both sides, which are considered to be within physiologic limits. Pelvic ultrasound within physiologic limits. We strive to produce accurate, complete, and clear reports of imaging services. To assist us in improving patient care, this report was composed using standard report templates and voice recognition software. Therefore, it may contain abnormal punctuation, insertions and/or omissions. Occasional wrong-word or sound-alike substitutions may occur. Though we review the report and make efforts to correct it, we do recommend that the report be read carefully in proper context to recognize any text inaccuracies. Dictated by: Jack Trevino M.D. on 07/06/2022 at 15:28 Approved by: Jack Trevino M.D. on 07/06/2022 at 15:29
--- NOTE | 2022-07-06 | DI.MRI.S_ITS ---
BREAST MRI OF BOTH BREASTS: 07/06/2022 CLINICAL: Right breast lump. PROCEDURE: MR BREAST BI WO/W CON INDICATIONS: Unspecified lump in the right breast TECHNIQUE: The patient was placed prone in a dedicated breast imaging coil. Precontrast axial STIR and 3D FLASH without fat saturation sequences were obtained. Both before and after bolus injection of contrast, sequential 1-minute axial 3D FLASH with fat saturation sequences for 3 time points, with subtraction images and maximum intensity projections (MIP's) generated. Delayed sagittal FLASH images with fat saturation were also obtained. Computer-aided detection, including computer algorithm analysis of MRI image data for lesion detection and characterization, pharmacokinetic analysis, with further physician review for interpretation, was performed. COMPARISON: 12/05/21 mammogram and US FINDINGS: Image quality: Good There is moderate background parenchymal enhancement. Right breast: In the lower inner region of the right breast just next to the nipple, there is a 1.9 x 0.6 x 0.8 cm nonenhancing region (14/92, 5/47) with intrinsic T1 signal on fat saturated images, and low signal on T2 weighted STIR images. Left breast: No suspicious mass, focus, or non mass enhancement. Miscellaneous: Scattered cysts are present in both breasts. No suspicious adenopathy. IMPRESSION: INCOMPLETE: NEEDS ADDITIONAL IMAGING EVALUATION IMPRESSION: In the right breast, lower-inner region, just next to the nipple under the skin is a 1.9 x 0.6 x 0.8 cm linear region (reference image 14/92, 5/47) with intrinsic T1 signal on fat saturated images and low signal on T2 STIR images, suggestive of proteinaceous or hemorrhagic contents. Linear shaped pointed toward the nipple could represent material in a dilated duct. On subtraction images, there is no appreciable soft tissue enhancement. Clinical correlation is necessary to see if this is the reported palpable abnormality. No BB marker or further clarification is available regarding the exact location. Ultrasound is recommended to further evaluate the above finding. If this does not correspond to the palpable abnormality, a diagnostic mammogram and ultrasound are also recommended for further evaluation. No suspicious findings in the left breast. Evaluation is somewhat limited due to moderate degree of background parenchymal enhancement and mild motion artifact. BIRADS 0 COMMENT: The imaging literature indicates that a negative contrast breast MRI examination has a high sensitivity and a moderate specificity for detecting and excluding invasive carcinomas to a detection threshold of 3-5 mm; nonetheless, appropriate clinical and mammographic follow-up are recommended. MRI is not sensitive for detecting DCIS (ductal carcinoma in situ) and may not detect large invasive neoplasms that show only minimal enhancement such as mucinous carcinoma. If there are suspicious calcifications or clinically worrisome palpable masses, then biopsy should still be considered. Invasive neoplasms can be hidden by co-existent and benign enhancement caused by mastitis, hormone therapy effects, radiation therapy, , and recent biopsy or surgery. False positive examinations can occur in a number of circumstances, including breasts that have recently been subject to invasive procedures and those that contain atypical ductal hyperplasia, hormonally stimulated glandular tissue, fat necrosis, or radial scars. This exam was interpreted at Station ID: [id number]. Electronically Signed By: Hollis Granados M.D. lc/:07/06/2022 15:39:16 copy to: Mary Johnson letter sent: Additional Imaging Needed ACR BI-RADS Category 0: Incomplete 3340F
== END ==
PROVIDERS: PCP Internal Medicine; Referring Provider Registered Nurse; Visit Provider Registered Nurse
DX: N63.14 Unspecified lump in the right breast, lower inner quadrant (principal); N64.4 Mastodynia; N60.01 Solitary cyst of right breast; N60.02 Solitary cyst of left breast; R10.9 Unspecified abdominal pain; Z87.442 Personal history of urinary calculi
CPT/HCPCS: 76830; 76856; 77049; 93975; A9579

== ENCOUNTER → 2022-08-02 08:45 | Outpatient (CLI) | payer OTHER, SELFPAY ==
--- NOTE | 2022-08-02 | DI.MG.S_ITS ---
UNILATERAL RIGHT DIGITAL DIAGNOSTIC MAMMOGRAM 3D/2D: 08/02/2022 CLINICAL: Per MRI report-- dx on right breast. Comparison is made to exams dated: 07/06/2022 breast MRI, 12/05/2021 ultrasound, 12/05/2021 mammogram, 12/05/2020 mammogram, and 09/16/2019 mammogram - [facility]. There are scattered areas of fibroglandular density in the right breast (category b / 25%-50% glandular tissue). There is a stable focal asymmetry in the right breast at 5 o'clock in the retroareolar region. This correlates with breast MRI findings. No other significant masses or calcifications are seen in the breast. IMPRESSION: INCOMPLETE: NEEDS ADDITIONAL IMAGING EVALUATION The stable focal asymmetry in the right breast resembles fibroglandular tissue and is indeterminate. A targeted ultrasound is recommended and will immediately follow. Based on the Tyrer Cuzick model (a risk assessment model) the patient's lifetime risk is 17.4% and her 10 year risk is 4.1%. According to the ACR, ACS, and NCCN guidelines, an annual breast MRI exam along with mammogram is recommended if the patient's lifetime risk is 20% or greater. This exam was interpreted at Station ID: [id number]. NOTE: For mammograms, a report in lay terms will be sent to the patient. Approximately 15% of breast malignancies will not be visualized mammographically. In the management of a palpable breast mass, a negative mammogram must not discourage biopsy of a clinically suspicious lesion. Electronically Signed By: Carmine Olivas M.D. slc/:08/02/2022 09:37:30 copy to: Mary Johnson ACR BI-RADS Category 0: Incomplete 3340F
--- NOTE | 2022-08-02 09:37 | DI.US.S_ITS ---
Patient Name: PAULO ARZOLA date: 1970 Sex: F Attending Physician: Jason Indications: Date: 08/02/2022 10:17 At the request of: YEMI CARRANZA Procedure: US breast RT limited LIMITED ULTRASOUND OF RIGHT BREAST AND AXILLA: 08/02/2022 CLINICAL: Abnormal MRI. Comparison is made to exams dated: 08/02/2022 mammogram, 07/06/2022 breast MRI, 12/05/2021 ultrasound, 12/05/2021 mammogram, 12/05/2020 mammogram, and 09/16/2019 mammogram - [facility]. Color flow and real-time ultrasound of the right breast 1 o'clock, 3-5 o'clock, and axilla regions were performed. Willis scale images of the real-time examination were reviewed. There is a 1.6 cm x 0.9 cm x 0.5 cm dilated duct in the right breast at 5 o'clock in the retroareolar region. This dilated duct displays internal echoes. This correlates with breast MRI findings. Color flow imaging demonstrates that there is no vascularity present. No intraductal mass. There are additional adjacent benign ducts and/or complicated cysts. No suspicious blood flow. These corresponding to the prior mammogram and MRI. No mass in the region of the previous palpable abnormalities. No significant abnormalities were seen sonographically in the right axilla. IMPRESSION: BENIGN There is no sonographic evidence of malignancy. The 1.6 cm dilated duct in the right breast is benign. No mass in the region of the palpable abnormality. No enlarged right axillary lymph nodes. Continued Report - Page 2 of 2 Patient Name: PAULO ARZOLA date: 1970 Sex: F Attending Physician: Jason Indications: Date: 08/02/2022 10:17 At the request of: YEMI CARRANZA Procedure: US breast RT limited Exam findings were discussed with the patient. Patient denies nipple discharge. Patient is advised to monitor for significant change. Clinical follow-up as needed. Return to screening mammogram schedule, due in 6 months. Recommend supplemental screening with alternating breast MRI. This exam was interpreted at Station ID: [id number]. Electronically Signed By: Carmine Olivas M.D. slc/:08/02/2022 10:17:48 copy to: Mary Johnson letter sent: Normal Exam Ultrasound BI-RADS: 2 Benign
== END ==
PROVIDERS: PCP Internal Medicine; Referring Provider Registered Nurse; Visit Provider Registered Nurse
DX: R92.8 Other abnormal and inconclusive findings on diagnostic imaging of breast (principal); N60.41 Mammary duct ectasia of right breast
CPT/HCPCS: 76642; 77065; G0279

== ENCOUNTER → 2023-03-05 16:35 | Outpatient (CLI) | payer OTHER, SELFPAY ==
--- NOTE | 2023-03-05 16:38 | DI.US.S_ITS ---
PROCEDURE: US PELVIC COMPLETE INDICATIONS: FOLLOW UP CYSTS TECHNIQUE: Real-time scanning was performed of the pelvic organs, with image documentation. Additional endovaginal scanning was necessary due to incomplete visualization of the adnexal and endometrial structures by transabdominal scanning. COMPARISON: [facility], , US PELVIC COMPLETE, 07/06/2022, 15:13. FINDINGS: Uterus: Uterus is anteverted and normal in size at 8.2 x 4.2 x 5.0 cm. The myometrium is heterogeneous. The endometrium measures 6 mm combined thickness. There is a left anterior intramural fibroid which measures 0.6 x 0.5 x 0.7 cm, a left anterior intramural fibroid which measures 0.7 x 0.7 x 0.9 cm, and a midline anterior intramural fibroid which measures 0.9 x 0.7 x 0.6 cm. Ovaries: The right ovary measures 2.7 x 1.9 x 2.2 cm, with a calculated ovarian volume of 5.8 cc. The left ovary measures 2.4 x 1.5 x 1.9 cm, with a calculated ovarian volume of 3.6 cc. The ovaries have a normal sonographic appearance. Physiologic appearing ovarian follicles are present in the bilateral ovaries. Less than 12 follicles can be seen in each ovary. No adnexal masses are seen. Other: No pathologic free abdominal or pelvic fluid. IMPRESSION: 1. Fibroid uterus. 2. Bilateral follicular cysts. No ovarian cysts visualized which require follow-up. We strive to produce accurate, complete, and clear reports of imaging services. To assist us in improving patient care, this report was composed using standard report templates and voice recognition software. Therefore, it may contain abnormal punctuation, insertions and/or omissions. Occasional wrong-word or sound-alike substitutions may occur. Though we review the report and make efforts to correct it, we do recommend that the report be read carefully in proper context to recognize any text inaccuracies. Dictated by: Ana Corbin M.D. on 03/06/2023 at 17:24 Approved by: Ana Corbin M.D. on 03/06/2023 at 17:28
== END ==
PROVIDERS: PCP Internal Medicine; Referring Provider Registered Nurse; Visit Provider Registered Nurse
DX: D25.1 Intramural leiomyoma of uterus (principal); N83.201 Unspecified ovarian cyst, right side; N83.202 Unspecified ovarian cyst, left side; N92.6 Irregular menstruation, unspecified
CPT/HCPCS: 76830; 76856

== ENCOUNTER → 2023-03-15 14:29 | Outpatient (CLI) | payer OTHER, SELFPAY ==
--- NOTE | 2023-03-15 | DI.MG.S_ITS ---
BILATERAL DIGITAL SCREENING MAMMOGRAM 3D/2D WITH CAD: 03/15/2023 CLINICAL: Routine screening. Family history of breast cancer. Comparison is made to exams dated: 08/02/2022 mammogram, 12/05/2021 mammogram, 09/16/2019 mammogram, and 12/05/2020 mammogram - [facility]. Both breasts are heterogeneously dense, which may obscure small masses (category c / 51-75% glandular tissue). Current study was also evaluated with a Computer Aided Detection (CAD) system. No significant masses, calcifications, or other findings are seen in either breast. There has been no significant interval change. IMPRESSION: NEGATIVE There is no mammographic evidence of malignancy. A 1 year screening mammogram is recommended. Based on Tyrer-Cuzick model (a risk assessment model), the patient's lifetime risk is 25.2% and her 10 year risk is 6.4%. If a patient has an elevated risk, a more comprehensive evaluation should be considered and/or a referral to a genetic counselor. The [employer], [employer], and NCCN Guidelines advise the consideration of Breast MRI as an adjunct to screening mammography in patients whose Lifetime risk to develop breast cancer is 20% or higher. This exam was interpreted at Station ID: [id number]. NOTE: For mammograms, a report in lay terms will be sent to the patient. Approximately 15% of breast malignancies will not be visualized mammographically. In the management of a palpable breast mass, a negative mammogram must not discourage biopsy of a clinically suspicious lesion. Electronically Signed By: Carmine harris/[place]:03/15/2023 17:16:46 copy to: Mary Johnson letter sent: Normal Exam ACR BI-RADS Category 1: Negative [id number]
== END ==
PROVIDERS: PCP Registered Nurse; Referring Provider Registered Nurse; Visit Provider Registered Nurse
DX: Z12.31 Encounter for screening mammogram for malignant neoplasm of breast (principal); Z80.3 Family history of malignant neoplasm of breast; R92.333 Mammographic heterogeneous density, bilateral breasts
CPT/HCPCS: 77063; 77067

== ENCOUNTER → 2023-11-26 11:56 | Outpatient (CLI) | payer OTHER, SELFPAY ==
[2023-11-26 12:25] LABS: Add Manual Diff / Slide Review NO; Basophils Absolute Auto 100 /uL (0-100); Eosinophils Absolute Auto 100 /uL (0-450); Eosinophils Percent Auto 1.5 % (2-4); Hematocrit 41.3 % (36-46); Hemoglobin 14.8 g/dL (12.0-16.0); Lymphocytes Absolute Auto 1900 /uL (1100-4500); Lymphocytes Percent Auto 32.3 % (25-40); Mean Corpuscular HGB Conc 35.8 % (30-36); Mean Corpuscular Hemoglobin 30.7 PG (26-34); Mean Corpuscular Volume 85.8 fL (80-100); Monocytes Absolute Auto 400 /uL (0-900); Monocytes Percent Auto 7.2 % (3-14); Neutrophils Absolute Auto 3400 /uL (1500-7000); Platelet Count 257 X10^3/uL (150-400); Red Blood Cell Count 4.81 X10^6/uL (4.0-5.2); Red Cell Distribution Width 12.6 % (11.6-14.8); White Blood Cell Count 5.8 X10^3/uL (4.5-11.0)
[2023-11-26 15:17] LABS: Iron 65 ug/dL (37-170)
== END ==
LOC: LAB 11:56
PROVIDERS: PCP Registered Nurse; Referring Provider Obstetrics & Gynecology; Visit Provider Obstetrics & Gynecology
DX: N92.0 Excessive and frequent menstruation with regular cycle (principal)
CPT/HCPCS: 36415; 83540; 85025

== ENCOUNTER 2024-01-09 07:59 | Emergency (ER) | payer OTHER, SELFPAY ==
[2024-01-09 08:24] VITALS: BP 145/78; PULSE 87; TEMP 37.1; O2SAT 99
[2024-01-09 08:35] VITALS: BMI 28.3
--- NOTE | 2024-01-09 09:40 | ED.ABDPAIN ---
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 She says it is radiating around hurts to breathe and move. She sometimes feels nauseous no vomiting. She has been taking ibuprofen without any sort of relief. It has been ongoing for the last 6 days. She saw primary care provider 2 days ago she would blood work and a scant scheduled for outpatient CT but waiting for insurance authorization. She says pain is just not going away she does have a history of kidney stones but pain really isn't radiating to her groin. She did have a bad hip difficult to tell she had some mild hematuria as well. No chest pain or shortness of breath. She initially was worried about pulmonary embolism but she has no known history of pulmonary embolism she has not on hormone she has not traveled she is a nonsmoker she has no hemoptysis Related Data Previous Rx's Medication Instructions Recorded methocarbamol 750 mg tablet 1,500 mg (2 x 750 mg) PO Q8H PRN 01/09/24 muscle spasm #20 tabs Allergies Allergy/AdvReac Type Severity Reaction Status Date / Time codeine [CODEINE] Allergy Mild RASH Verified 11/25/23 15:19 Patient History Medical History (Updated 01/09/24 @ 12:17 by Radha Boucher DO) Irregular menstrual cycle (~2021) Abnormal Pap smear of cervix (~1994) Kidney stones (~2014) Vaginal delivery Ovarian cyst (~2021) Healthy adult Surgical History (Updated 05/27/22 @ 19:59 by Irina Laws) Anesthesia History of hip surgery (~03/2017) Hx laparoscopic cholecystectomy (~08/1999) History of appendectomy (~12/2004) Family History (Updated 05/27/22 @ 20:00 by Irina Laws) Mother Breast cancer Social History Smoking Status: Never smoker Smoking Status: Never smoker alcohol intake frequency: holidays/special occasions only Substance Use Type: does not use Exam Initial Vital Signs Initial Vital Signs: Vital Signs Temperature 98.7 F 01/09/24 08:24 Pulse Rate 87 01/09/24 08:24 Blood Pressure 145/78 H 01/09/24 08:24 Pulse Oximetry 99 01/09/24 08:24 Oxygen Delivery Method Room Air 01/09/24 08:24 GENERAL: Alert 53-year-old female appears uncomfortable HEENT: Head atraumatic,EOMI, pupils reactive, face symmetric, moist mucous membranes CARDIOVASCULAR: Regular rate and rhythm without murmurs, rubs or gallops. RESPIRATORY: Breath sounds equal bilaterally, no wheezes rales or rhonchi. ABDOMEN: Soft, right upper quadrant pain no guarding or rebound minimal epigastric pain no lower abdominal pain : No CVA tenderness EXTREMITIES: Normal range of motion, no clubbing or edema. Neurovascularly intact NEUROLOGICAL: Alert and oriented x4.Normal gait and speech. SKIN: Warm, dry, no laceration, no petechiae, no rashes or lesions. Scores PERC Score Age greater than or equal to 50 years: Yes Heart rate greater than or equal to 100 bpm: No Room Air O2 Sat less than 95%: No Unilateral leg swelling: No Recent trauma or surgery: No Hemoptysis: No Prior PE or DVT: No Hormone Use: No Total PERC Score: 1 Course Orders Ordered: ED Orders 01/09/24 09:49 CT abdomen pelvis w con Stat EKG-12 Lead Stat 01/09/24 10:01 Complete Blood Count AUTO DIFF Stat Comprehensive Metabolic Panel Stat Lipase Stat Troponin & CK Cardiac Panel Stat 01/09/24 12:01 Chest [XR chest 2V] Stat Discontinued Medications Ketorolac Tromethamine (Ketorolac 30 Mg/Ml Vial) 15 mg IV NOW ONE Stop: 01/09/24 09:50 Last Admin: 01/09/24 10:03 Dose: 15 mg Documented By: DAVIS Ondansetron HCl (Ondansetron 4 Mg/2 Ml Inj) 4 mg IV NOW PRN PRN Reason: Nausea And Vomiting Ondansetron HCl (Ondansetron 4 Mg Odt) 4 mg PO NOW PRN PRN Reason: Nausea And Vomiting Vital Signs Vital signs: Vital Signs - 8 hr 01/09/24 11:28 01/09/24 11:29 01/09/24 11:29 Pulse Rate 70 72 Respiratory Rate Blood Pressure 127/60 Pulse Oximetry 99 99 Oxygen Delivery Method 01/09/24 11:30 01/09/24 11:30 Pulse Rate 72 71 Respiratory Rate 16 Blood Pressure 127/60 Pulse Oximetry 100 100 Oxygen Delivery Method Room Air MDM - Abdominal Pain Lab Data 01/09/24 10:01 01/09/24 10:01 Labs: Lab Results 01/09/24 Range/Units 10:01 WBC 5.1 (4.5-11.0) X10^3/uL RBC 4.64 (4.0-5.2) X10^6/uL Hgb 14.0 (12.0-16.0) g/dL Hct 40.0 (36-46) % MCV 86.3 (80-100) fL MCH 30.1 (26-34) PG MCHC 34.9 (30-36) % RDW 12.2 (11.6-14.8) % Plt Count 219 (150-400) X10^3/uL Neut % (Auto) 58.4 (50-75) % Lymph % (Auto) 29.1 (25-40) % [place] % (Auto) 9.2 (3-14) % Eos % (Auto) 2.1 (2-4) % Baso % (Auto) 1.2 (0-2) % Neut # (Auto) 3000 (8022-8601) /uL Lymph # (Auto) 1500 (9463-6899) /uL [place] # (Auto) 500 (0-900) /uL Eos # (Auto) 100 (0-450) /uL Baso # (Auto) 100 (0-100) /uL Sodium 134 L (137-145) mmol/L Potassium 4.7 (3.4-5.1) mmol/L Chloride 104 (98-107) mmol/L Carbon Dioxide 26 (22-32) mmol/L BUN 17 (7-17) mg/dL Creatinine 0.62 (0.52-1.04) mg/dL Estimated GFR > 60 (>60) mL/min BUN/Creatinine Ratio 27.4 H (6-22) Glucose 104 H (70-100) mg/dL Calcium 8.5 (8.4-10.2) mg/dL Total Bilirubin 0.8 (0.2-1.3) mg/dL AST 27 (14-36) IU/L ALT 11 (<35) IU/L Alkaline Phosphatase < 20 L (38-126) U/L Total Creatine Kinase 36 (30-135) U/L Troponin I < 0.012 (0.01-0.034) ng/mL Total Protein 6.4 (6.3-8.2) g/dL Albumin 4.0 (3.5-5.0) g/dL Globulin 2.4 (1.7-4.1) g/dL Albumin/Globulin Ratio 1.7 (1.0-2.8) Lipase 43 (23-300) U/L Point of care testing: Point of Care Testing Test Results Negative Urine Dip Bedside Urine Glucose Negative Bedside Urine Bilirubin - Negative Bedside Urine Ketone - Negative Urine Specific [place] 1.015 Bedside Urine Occult Blood + Bedside Urine pH 6.5 Bedside Urine Protein - Negative Bedside Urine Urobilinogen - Negative Bedside Urine Nitrite - Negative Bedside Urine Leukocytes - Negative Esterase Imaging Data CT scan - abdomen/pelvis: Radiologist's Impression: PROCEDURE: CT ABDOMEN PELVIS W CON INDICATIONS: right upper pain hx zuleyka and appy pancreatic mass TECHNIQUE: After the administration of intravenous contrast, axial sections acquired from the lung bases to the pubic symphysis. Coronal and sagittal reformats were performed. For radiation dose reduction, the following was used: automated exposure control, adjustment of mA and/or kV according to patient size. COMPARISON: [facility], MR, MR ABDOMEN PANCREAS PROTOCOL, 04/11/2022, 8:11. [facility], CT, CT ABDOMEN PELVIS W CON, 07/01/2022, 12:26. FINDINGS: Image quality: Diagnostic. Lower Chest: No significant findings. ABDOMEN: Liver: No solid mass. Gallbladder: Prior cholecystectomy. Biliary ducts: No biliary dilation. Pancreas: No ductal dilation. A small cystic structure at the pancreatic head/neck junction is again seen and has been stable over multiple prior studies including CT and MRI abdomen scanning. Spleen: Size is within normal limits. Adrenal Glands: No adrenal nodules. Kidneys and Ureters: No hydronephrosis. No solid mass. No complex renal cystic lesion which requires follow up. Several small simple appearing renal cortical cysts noted. No change. Stomach and Bowel: Normal colonic caliber, without significant wall thickening. Peritoneum: No abnormal intraperitoneal fluid. No free air. Ventral Wall: No significant ventral hernia. Abdominal Nodes: No retroperitoneal or mesenteric adenopathy by size criteria. Vessels: Aorta and inferior vena cava are normal in size. PELVIS: Pelvic Organs: Unremarkable. Bladder: No bladder wall thickening, accounting for underdistention. Pelvic Nodes: No enlarged lymph nodes. Miscellaneous: No inguinal hernias are seen. Suspect prior appendectomy or pericecal small calcifications. No CT evidence of appendicitis. electroencephalogram technologist note indicates prior appendectomy. Bones: No aggressive osseous abnormality. IMPRESSION: Etiology of right-sided flank pain is not found. No sign of hydronephrosis, nephrolithiasis or renal inflammation. Prior cholecystectomy, no operative complication seen. Stable benign-appearing small cyst at the pancreatic head/neck junction over multiple prior studies and years. No follow-up recommended. Dictated by: Andres Larson M.D. on 01/09/2024 at 10:05 ECG Data Attestation: I personally reviewed and interpreted this ECG as follows: Prior ECG tracings: not available for review Interpretation: Normal sinus rhythm rate 67 PA interval 156 QRS [address] change MDM Narrative Medical decision making narrative: MDM CC: Right sided pain Complicating co-morbidities: Healthy female Medical records reviewed: Records from visit on January 06 happened received and reviewed blood work is overall stable Differential considered: Choledocholithiasis nephrolithiasis pancreatitis pancreatic mass costochondritis, shingles Exam documented above, pertinent findings include: Patient is tender along right ribs and under when right upper quadrant. No obvious vesicles or rash noted pain is reproducible to touch Lab Test results independently reviewed as above. Pertinent findings: CBC WBC 5.1 hemoglobin 14 hematocrit 40 CMP sodium 134 potassium 4.7 chloride 104 carbon dioxide 26 BUN 17 creatinine 0.62 Bilirubin 0.8 AST 27 ALT 11 lipase 40 Troponin negative Independently reviewed EKG as above no ischemia, no Q-wave no S-wave no T-wave inversions Imaging studies independently reviewed: CT shows stable pancreatic cyst without evidence of nephrolithiasis or other etiology he is prior cholecystectomy Treatments: Toradol Re-evaluations: Patient still in pain. Requesting chest x-ray Discussion: 53-year-old female presenting today with a right-sided chest and rib pain. It is definitely reproducible with palpation radiates around to the front. 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 Blood work today is unremarkable. CT does not show any cause of pain. No evidence of shingles, although she states her skin is really sensitive now. Symptoms have been ongoing for 6 days would suspect rash at this point. At this time I do think probably musculoskeletal no other explanation. Unlikely to be pulmonary embolism despite PERC score of 1 which is only age. He has not short of breath has a negative troponin she has not tachycardic. Did not wanting anything stronger than a muscle relaxer. We discussed other topical [id number]-fwdmqdy options Discharge Plan Departure Patient Disposition: Home Clinical Impression: Acute costochondritis Clinical Impression: (Ruled Out): Irregular menstrual cycle Instructions: Costochondritis Activity Restrictions/Additional Instructions: *You have been diagnosed with costochondritis *What to do: At this time no evidence of cause of your pain. It might be musculoskeletal. Recommend topical arnica or CVD ointment or cream. Please follow-up with your primary care provider *Continue to take medications as directed Motrin 600 mg with food every 8 hours for wdsc-rj-bzkfzjbo pain Tylenol 1000 mg every 6 hours for wbvr-da-iagpibiy pain Methocarbamol 750-1500 mg at night for sleeping or may try every 8 hours for relief You can also try a lidocaine patch for 12 hours *Follow up with your primary care provider in 2-3 days or call [phone] *Return to ER if you should have increasing pain shortness of breath nausea vomiting or any new, worsening or concerning symptoms Prescriptions: New methocarbamol 750 mg tablet 1,500 mg PO Q8H PRN (Reason: muscle spasm) Qty: 20 0RF Referrals: Marika Gomez ARNP [Primary Care Provider] - Stand Alone Forms: Patient Portal/API/Survey
--- NOTE | 2024-01-09 09:49 | EKG_ITS ---
[id number] [address] Test Date: 2024-01-09 Pat Name: Marjan Walker Department: [facility] Room: Gender: Female Warp Preparer: TIFFANIE : 1970 Requested By: Order Number: [id number] Reading MD: Javed Fournier MD Measurements Intervals [place] Rate: 67 P: 52 AR: 156 QRS: 23 QRSD: 80 T: 42 QT: 402 QTc: 424 Interpretive Statements Normal sinus rhythm Electronically Signed On 01-09-2024 15:13:43 PST by Javed Fournier MD
--- NOTE | 2024-01-09 09:49 | DI.CT.S_ITS ---
PROCEDURE: CT ABDOMEN PELVIS W CON INDICATIONS: right upper pain hx zuleyka and appy pancreatic mass TECHNIQUE: After the administration of intravenous contrast, axial sections acquired from the lung bases to the pubic symphysis. Coronal and sagittal reformats were performed. For radiation dose reduction, the following was used: automated exposure control, adjustment of mA and/or kV according to patient size. COMPARISON: [facility], MR, MR ABDOMEN PANCREAS PROTOCOL, 04/11/2022, 8:11. [facility], CT, CT ABDOMEN PELVIS W CON, 07/01/2022, 12:26. FINDINGS: Image quality: Diagnostic. Lower Chest: No significant findings. ABDOMEN: Liver: No solid mass. Gallbladder: Prior cholecystectomy. Biliary ducts: No biliary dilation. Pancreas: No ductal dilation. A small cystic structure at the pancreatic head/neck junction is again seen and has been stable over multiple prior studies including CT and MRI abdomen scanning. Spleen: Size is within normal limits. Adrenal Glands: No adrenal nodules. Kidneys and Ureters: No hydronephrosis. No solid mass. No complex renal cystic lesion which requires follow up. Several small simple appearing renal cortical cysts noted. No change. Stomach and Bowel: Normal colonic caliber, without significant wall thickening. Peritoneum: No abnormal intraperitoneal fluid. No free air. Ventral Wall: No significant ventral hernia. Abdominal Nodes: No retroperitoneal or mesenteric adenopathy by size criteria. Vessels: Aorta and inferior vena cava are normal in size. PELVIS: Pelvic Organs: Unremarkable. Bladder: No bladder wall thickening, accounting for underdistention. Pelvic Nodes: No enlarged lymph nodes. Miscellaneous: No inguinal hernias are seen. Suspect prior appendectomy or pericecal small calcifications. No CT evidence of appendicitis. dairy technologist note indicates prior appendectomy. Bones: No aggressive osseous abnormality. IMPRESSION: Etiology of right-sided flank pain is not found. No sign of hydronephrosis, nephrolithiasis or renal inflammation. Prior cholecystectomy, no operative complication seen. Stable benign-appearing small cyst at the pancreatic head/neck junction over multiple prior studies and years. No follow-up recommended. Dictated by: Andres Larson M.D. on 01/09/2024 at 10:05 Approved by: Andres Larson M.D. on 01/09/2024 at 10:12
[2024-01-09] MEDS: KETOROLAC 30 MG/ML VIAL 15 MG IV (10:03)
[2024-01-09 10:10] LABS: Add Manual Diff / Slide Review NO; Basophils Absolute Auto 100 /uL (0-100); Basophils Percent Auto 1.2 % (0-2); Eosinophils Absolute Auto 100 /uL (0-450); Eosinophils Percent Auto 2.1 % (2-4); Lymphocytes Absolute Auto 1500 /uL (1100-4500); Lymphocytes Percent Auto 29.1 % (25-40); Mean Corpuscular HGB Conc 34.9 % (30-36); Mean Corpuscular Hemoglobin 30.1 PG (26-34); Mean Corpuscular Volume 86.3 fL (80-100); Monocytes Absolute Auto 500 /uL (0-900); Monocytes Percent Auto 9.2 % (3-14); Neutrophils Absolute Auto 3000 /uL (1500-7000); Neutrophils Percent Auto 58.4 % (50-75); Platelet Count 219 X10^3/uL (150-400); Red Blood Cell Count 4.64 X10^6/uL (4.0-5.2); Red Cell Distribution Width 12.2 % (11.6-14.8); White Blood Cell Count 5.1 X10^3/uL (4.5-11.0)
[2024-01-09 10:51] LABS: Alanine Aminotransferase 11 IU/L (<35); Albumin Globulin Ratio 1.7 (1.0-2.8); Aspartate Aminotransferase 27 IU/L (14-36); BUN Creatinine Ratio 27.4 (6-22); Bilirubin Total 0.8 mg/dL (0.2-1.3); Blood Urea Nitrogen 17 mg/dL (7-17); Calcium 8.5 mg/dL (8.4-10.2); Carbon Dioxide 26 mmol/L (22-32); Chloride 104 mmol/L (98-107); Estimated Glomerular Filt Rate > 60 mL/min (>60); Globulin 2.4 g/dL (1.7-4.1); Glucose 104 mg/dL (70-100); Lipase 43 U/L (23-300); Sodium 134 mmol/L (137-145); Total Protein 6.4 g/dL (6.3-8.2)
[2024-01-09 11:00] LABS: Alkaline Phosphatase < 20 U/L (38-126); HEMOLYSIS 78 (0-50); Potassium 4.7 mmol/L (3.4-5.1)
[2024-01-09 11:15] LABS: Creatine Kinase 36 U/L (30-135)
[2024-01-09 11:28] VITALS: PULSE 70; O2SAT 99
[2024-01-09 11:28] LABS: Troponin I < 0.012 ng/mL (0.01-0.034)
[2024-01-09 11:29] VITALS: BP 127/60; PULSE 72; O2SAT 99
[2024-01-09 11:30] VITALS: BP 127/60; PULSE 71; PULSE 72; RESP 16; O2SAT 100
--- NOTE | 2024-01-09 12:01 | DI.RAD.S_ITS ---
PROCEDURE: XR CHEST 2V INDICATIONS: right sided chest pain TECHNIQUE: 2 views of the chest were acquired. COMPARISON: [facility], , XR CHEST 2V, 11/25/2018, 15:00. FINDINGS: Surgical changes and devices: Cholecystectomy clips. Lungs and pleura: Lungs are clear. No pleural effusions or pneumothorax. Mediastinum: Mediastinal contours are normal. Heart size is normal. Bones and chest wall: No suspicious bony abnormalities. Soft tissues appear unremarkable. IMPRESSION: No acute cardiopulmonary abnormality is seen. Dictated by: Sheila Guzman MD, PhD on 01/09/2024 at 12:28 Approved by: Sheila Guzman MD, PhD on 01/09/2024 at 12:28
== END 2024-01-09 12:39 | disposition home or self-care (01) ==
PROVIDERS: Emergency Provider Emergency Medicine; PCP Registered Nurse
DX: M94.0 Chondrocostal junction syndrome [Tietze] (principal); R11.0 Nausea; R07.81 Pleurodynia; R07.9 Chest pain, unspecified
CPT/HCPCS: 71046; 74177; 80053; 81003; 81025; 82550; 83690; 84484; 85025; 93005; 93010; 96374; 99284; J1885; Q9967

== ENCOUNTER → 2024-06-18 15:58 | Outpatient (CLI) | payer OTHER, SELFPAY ==
--- NOTE | 2024-06-18 15:59 | DI.MG.S_ITS ---
MM screening mammo BI: 06/18/2024. BI-RADS: 2 CLINICAL: 53-year old female for bilateral screening mammogram. Tyrer-Cuzick lifetime risk of 20.5%. Current reported family history of breast cancer: mother. PRIOR EXAMS 03/15/2023, 08/02/2022, 07/06/2022, 12/05/2021, 12/05/2020, 09/16/2019, 02/24/2018, 06/29/2017, 01/23/2016, 12/17/2014. MAMMOGRAPHY TECHNIQUE: 2D and 3D (tomosynthesis) digital mammographic views obtained, with additional images as needed for full coverage. Current study was also evaluated with a Computer Aided Detection (CAD) system. DENSITY C. The breasts are heterogeneously dense, which may obscure small masses. MAMMOGRAPHY FINDINGS Bilateral: Benign-appearing calcifications noted. There are no suspicious masses, calcifications, or other findings in the breast. No significant change from comparison. IMPRESSION: * No evidence of malignancy with benign findings. RECOMMENDATIONS Bilateral * According to the Tyrer-Cuzick Risk Assessment Model, based on the information provided your patient has a greater than 20% lifetime risk for developing breast cancer. Consider supplemental screening with breast MRI and participation in a high risk screening program. * Annual screening mammography. OVERALL ASSESSMENT CATEGORY BI-RADS-2: Benign. The [employer] recommends annual screening mammography beginning at age 40 for women with average risk of breast cancer. ELECTRONICALLY SIGNED: Geno Irwin M.D. on 06/19/2024 at 12:57:19 PM PT Interpreting Station ID: [id number]
== END ==
PROVIDERS: PCP Registered Nurse; Referring Provider Registered Nurse; Visit Provider Registered Nurse
DX: Z12.31 Encounter for screening mammogram for malignant neoplasm of breast (principal); Z80.3 Family history of malignant neoplasm of breast; R92.333 Mammographic heterogeneous density, bilateral breasts
CPT/HCPCS: 77063; 77067

== ENCOUNTER → 2024-10-10 07:30 | Outpatient (CLI) | payer OTHER, SELFPAY ==
--- NOTE | 2024-10-10 07:32 | DI.MRI.S_ITS ---
PROCEDURE: MR AB PANCREATIC/MRCP PROTOCOL INDICATIONS: pancreatic cyst TECHNIQUE: Coronal HASTE through the abdomen, axial 2-D FLASH in- and weh-wd-ksiea, and breath-hold T2 FSE with fat saturation through the biliary system and pancreas. Oblique coronal and axial thin-slice HASTE, radial thick-slab HASTE centered on the extrahepatic bile ducts. Intravenous secretin: Not requested. COMPARISON: [facility], MR, MR ABDOMEN WITH/WITHOUT CONTRAST, 06/25/2023, 9:13. FINDINGS: Image quality: Diagnostic. Gallbladder: Status post cholecystectomy Biliary ducts: No biliary dilation. Pancreas: There is no dilatation of the main pancreatic duct. Stable appearance of simple cystic structure arising from the junction of the head and neck which extends towards the main pancreatic duct, measuring 1.3 x 0.8 cm. No areas of abnormal enhancement or restriction of diffusion. No new focal lesion seen. OTHER: Lung bases: Unremarkable. Liver: No solid mass. Spleen: Size is within normal limits. Adrenal Glands: No adrenal nodules. Kidneys and Ureters: No hydronephrosis. No solid mass. No complex renal cystic lesion which requires follow up. Stomach and Bowel: Normal colonic caliber, without significant wall thickening. Peritoneum: No abnormal intraperitoneal fluid. No free air. Ventral Wall: No hernia. Abdominal Nodes: No retroperitoneal or mesenteric adenopathy by size criteria. Vessels: Aorta and inferior vena cava are normal in size. Bones: No aggressive osseous abnormality. IMPRESSION: 1. Stable appearance of the small side branch IPMN at the junction of pancreatic head and neck. No new suspicious features seen. 2. No new focal lesion seen. Dictated by: Ludin Yang M.D. on 10/11/2024 at 18:38 Approved by: Ludin Yang M.D. on 10/11/2024 at 18:46
== END ==
LOC: MRI 07:31
PROVIDERS: PCP Registered Nurse; Referring Provider Registered Nurse; Visit Provider Registered Nurse
DX: K86.2 Cyst of pancreas (principal)
CPT/HCPCS: 74183; A9579